=== PATIENT | female | born 1955 | race American Indian/Alaskan Native ===

== ENCOUNTER 2016-11-25 06:32 | Inpatient (IN) | payer OTHER ==
[2016-11-16 10:14] VITALS: BMI 26.7
[2016-11-25] MEDS ORDERED: Bupivacaine HCl 0.25% PF (10 ml) Inj ONE (07:18)
[2016-11-25] MEDS ORDERED: Propofol 10 mg/ml Inj (20 ML) ONE (07:21)
[2016-11-25] MEDS ORDERED: Midazolam 2 MG/2 ML VIAL ONE (07:21)
--- NOTE | 2016-11-25 07:23 | CP.PCM.HP ---
History of Present Illness - History of Present Illness History of Present Illness: 61F with left shoulder DJD failed conservative mgmt and elected for total shoulder replacement. Denies history of bleeding disorder, denies hx DVT. PMH: GERD, HTN PSH: Left TKR, B THR Present on Admission - Present on Admission Any Indicators Present on Admission: No Past Patient History - Past Medical History & Family History Past Medical History?: Yes - Past Social History Smoking Status: Former Smoker - CARDIAC Hx Cardiac Disorders: Yes (HX. RHEUMATIC FEVER) Hx Hypercholesterolemia: Yes Hx Hypertension: Yes - PULMONARY Hx Respiratory Disorders: Yes Hx Bronchitis: Yes (RECENTLY) - NEUROLOGICAL Hx Neurological Disorder: No - HEENT Hx HEENT Problems: Yes (GLASSES) - RENAL Hx Chronic Kidney Disease: No - ENDOCRINE/METABOLIC Hx Endocrine Disorders: No - HEMATOLOGICAL/ONCOLOGICAL Hx Blood Disorders: Yes Hx Blood Transfusions: Yes (AUTOLOGOUS) Hx Blood Transfusion Reaction: No - INTEGUMENTARY Hx Dermatological Problems: No - MUSCULOSKELETAL/RHEUMATOLOGICAL Hx Musculoskeletal Disorders: Yes (LEFT SHOUDER PAIN) Hx Degenerative Joint Disease: Yes Hx Osteoarthritis: Yes - GASTROINTESTINAL Hx Gastrointestinal Disorders: Yes Hx Gastroesophageal Reflux: Yes - GENITOURINARY/GYNECOLOGICAL Hx Genitourinary Disorders: No - PSYCHIATRIC Hx Psychophysiologic Disorder: No - SURGICAL HISTORY Hx Surgeries: Yes Hx Joint Replacement: Yes (BILATERAL HIP/LEFT TOTAL KNEE) - ANESTHESIA Hx Anesthesia: Yes Hx Anesthesia Reactions: No Hx Malignant Hyperthermia: No Has any member of the family had a problem w/ anesthesia?: (UNKNOWN) Meds Allergies/Adverse Reactions: Allergies Allergy/AdvReac Type Severity Reaction Status Date / Time Penicillins Allergy Severe ANAPHYLAXIS Verified 11/16/16 10:13 Physical Exam - Constitutional Appears: Well, No Acute Distress Additional comments: Medical clearance/H&P on chart - Extremities Exam Additional comments: +radial pulse sensation intact +ROM fingers abd/add/flex/ext, wrist flex/ext - Neurological Exam Neurological exam: Alert, Oriented x3 - Psychiatric Exam Psychiatric exam: Normal Affect, Normal Mood - Skin Skin Exam: Dry, Intact, Normal Color, Warm Results - Labs Labs: labs on chart, reviewed Assessment & Plan (1) Degenerative joint disease, shoulder, left Status: Acute (2) HTN (hypertension) Status: Acute (3) GERD (gastroesophageal reflux disease) Status: Acute Decision To Admit - Pt Status Changed To: Hospital Disposition Of: Inpatient - Admit Certification Admit to Inpatient:: After my assessment, the patient will require hospitalization for at least two midnights. This is because of the severity of symptoms shown, intensity of services needed, and/or the medical risk in this patient being treated as an outpatient. - InPatient: Physician Admission Certification:: After my assessment, the patient will require hospitalization for at least two midnights. This is because of the severity of symptoms shown, intensity of services needed, and/or the medical risk in this patient being treated as an outpatient. - . Bed Request Type: Regular
[2016-11-25] MEDS ORDERED: EPINEPHrine 1:1000 Nasal Sol(30mL) ONE (07:26)
[2016-11-25] MEDS ORDERED: Lactated Ringer's 1,000 ML IV ONE ×3 (08:10→10:50)
[2016-11-25] MEDS ORDERED: Bacitracin 150,000 UNIT in Sodium Chloride 0.9% Irrig 3,000 ML IR SCH (08:30)
[2016-11-25] MEDS ORDERED: White Petrolatum/Mineral Oil Ophth Oint(3.5 gm) ONE (08:37)
[2016-11-25] MEDS ORDERED: Rocuronium 10 mg/ml (5 ml) ONE (08:37)
[2016-11-25] MEDS: EPINEPHrine 1 mg/ml (1:1000) Inj ONE ×2 (08:41→08:47)
[2016-11-25] MEDS ORDERED: Lactated Ringer's 1,000 ML IV SCH (10:45)
[2016-11-25] MEDS ORDERED: Neostigmine Methylsulfate 3mg/3ml Syringe IV ONE (11:14)
[2016-11-25] MEDS ORDERED: HYDROmorphone 0.5 mg/0.5 ml ISec IVP PRN (11:40)
[2016-11-25] MEDS ORDERED: Sodium Chloride 0.9% 1,000 ML IV SCH (11:45)
--- NOTE | 2016-11-25 11:47 | PCM.SURG1 ---
Surgeon's Initial Post Op Note - Surgeon's Notes Surgeon: Remigio Parra MD Radio Operator: Bari Saldaña PA-C, CRNA Type of Anesthesia: General Endo Anesthesia Administered By: Dr. Wright Pre-Operative Diagnosis: Left shoulder degenerative joint disease Operative Findings: Medacta implants Post-Operative Diagnosis: same Operation Performed: 1. Left total shoulder replacement. 2. open rotator cuff repair. 3. open biceps tenodesis. 4. arthrotomy, excision of labrum and osteophytes Specimen/Specimens Removed: bone, synovium Estimated Blood Loss: EBL {In ML}: 100 Blood Products Given: N/A Drains Used: No Drains Post-Op Condition: Fair Date of Surgery/Procedure: 11/25/16 Time of Surgery/Procedure: 11:47
[2016-11-25] MEDS: HYDROmorphone 0.5 mg/0.5 ml ISec IVP PRN ×6 (12:03→12:40)
--- NOTE | 2016-11-25 13:03 | RAD ---
PROCEDURE: Radiographs of the Left Shoulder HISTORY: pt in pacu, s/p total shoulder COMPARISON: No prior. FINDINGS: BONES: Total left shoulder arthroplasty -prostatic components appear well-seated within glenoid and proximal humerus JOINTS: Normal. Glenohumeral and acromioclavicular joints preserved. No osteoarthritis. SOFT TISSUES: Skin dhiraj in place OTHER FINDINGS: None. IMPRESSION: Postop changes
[2016-11-25] MEDS ORDERED: HYDROmorphone 1 mg/ml ISec IVP PRN (14:00)
--- NOTE | 2016-11-25 14:22 | PCM.ANESB1 ---
Interscalene Block - Brachial Plexus Procedure Performed: Interscalene Block of Brachial Plexus Left - Procedure Interscalene Block of Brachial Plexus: This procedure was explained to the patient that it is for post-operative pain management. Consent was obtained after a thorough discussion with the patient regarding the benefits and possible complications of local anesthetic block of the Brachial Plexus at the Interscalene area. The patient was brought to the Operating Room and standard monitors were applied. Time out was held with the circulating nurse to confirm the correct surgery and appropriate block. After applying Oxygen by nasal cannula and administering IV Sedation, the patient's head was gently rotated away from the LEFT_operative shoulder and the anterior scalene groove was carefully palpated. The ultrasound transducer was then applied to the skin in the transverse plane and the brachial plexus was visualized lateral to the carotid artery and in between the anterior and middle scalene muscles. After identification,the anterior lateral portion of the neck was prepped with Betadine solution three times and Lidocaine 1% was injected subcutaneously for topical analgesia. At this point, a # 22 gauge Stimuplex 2 inches insulated needle was inserted into the interscalene groove and directed in a caudal and midline direction. The needle was inserted lateral to the ultrasound transducer in-plane towards the brachial plexus in a [id number] direction. Needle advancement was performed carefully under direct ultrasound visualization. After repeated negative aspiration,_5__cc of____0.25%_bupivicaine____were injected and this was followed with __10___cc of _0.25%_bupivicaine_. Under ultrasound guidance the local anesthetics were observed surrounding the roots of the brachial plexus. The needle was removed intact and sterile dressing was applied. The patient had stable vital signs, was conscious and in no apparent distress. The patient tolerated the interscalene block of the bracheal plexus well with stable vital signs, no complaints or paresthesias.
[2016-11-25] MEDS ORDERED: Sodium Chloride 0.9% 1,000 ML IV ONE (15:00)
[2016-11-25] MEDS: Clindamycin 600mg/50ml D5W 600 MG/50 ML VIAL IVPB SCH ×2 (16:41→19:37)
[2016-11-25] MEDS: Saccharomyces Boulardi 250 mg Cap PO SCH (18:31)
--- NOTE | 2016-11-25 20:50 | CP.PCM.HP ---
<Claire Ramana - Last Filed: 11/25/16 20:52> History of Present Illness - History of Present Illness History of Present Illness: Medicine Consult Note CC: Medical Management HPI: PMHx: PSHx: Meds: All: SHx: FHx: PMD: Past Patient History - Past Medical History & Family History Past Medical History?: Yes - Past Social History Smoking Status: Former Smoker - CARDIAC Hx Cardiac Disorders: Yes (HX. RHEUMATIC FEVER) Hx Hypercholesterolemia: Yes Hx Hypertension: Yes - PULMONARY Hx Respiratory Disorders: Yes Hx Bronchitis: Yes (RECENTLY) - NEUROLOGICAL Hx Neurological Disorder: No - HEENT Hx HEENT Problems: Yes (GLASSES) - RENAL Hx Chronic Kidney Disease: No - ENDOCRINE/METABOLIC Hx Endocrine Disorders: No - HEMATOLOGICAL/ONCOLOGICAL Hx Blood Disorders: Yes Hx Blood Transfusions: Yes (AUTOLOGOUS) Hx Blood Transfusion Reaction: No - INTEGUMENTARY Hx Dermatological Problems: No - MUSCULOSKELETAL/RHEUMATOLOGICAL Hx Musculoskeletal Disorders: Yes (LEFT SHOUDER PAIN) Hx Degenerative Joint Disease: Yes Hx Osteoarthritis: Yes - GASTROINTESTINAL Hx Gastrointestinal Disorders: Yes Hx Gastroesophageal Reflux: Yes - GENITOURINARY/GYNECOLOGICAL Hx Genitourinary Disorders: No - PSYCHIATRIC Hx Psychophysiologic Disorder: No - SURGICAL HISTORY Hx Surgeries: Yes Hx Joint Replacement: Yes (BILATERAL HIP/LEFT TOTAL KNEE) - ANESTHESIA Hx Anesthesia: Yes Hx Anesthesia Reactions: No Hx Malignant Hyperthermia: No Has any member of the family had a problem w/ anesthesia?: (UNKNOWN) Meds Allergies/Adverse Reactions: Allergies Allergy/AdvReac Type Severity Reaction Status Date / Time Penicillins Allergy Severe ANAPHYLAXIS Verified 11/16/16 10:13 Results - Vital Signs Recent Vital Signs: Last Vital Signs Temp 98.3 F 11/25/16 20:15 Pulse 63 11/25/16 20:15 Resp 18 11/25/16 20:15 BP 131/76 11/25/16 20:15 Pulse Ox 99 11/25/16 20:15 - Labs Labs: Laboratory Results - last 24 hr 11/25/16 07:40 Blood Type O POSITIVE Antibody Screen Negative <Glenn Arias - Last Filed: 11/25/16 21:59> Results - Vital Signs Recent Vital Signs: Last Vital Signs Temp 98.3 F 11/25/16 20:15 Pulse 63 11/25/16 20:15 Resp 18 07/06/17 20:15 BP 131/76 11/25/16 20:15 Pulse Ox 99 11/25/16 20:15 - Labs Labs: Laboratory Results - last 24 hr 11/25/16 07:40 Blood Type O POSITIVE Antibody Screen Negative
[2016-11-25] MEDS ORDERED: POLYETHYLENE GLYCOL 3350 17 GM/Dose PACKET PO ONE (22:03)
--- NOTE | 2016-11-25 22:10 | CP.PCM.HP ---
<Glenn Arias - Last Filed: 11/25/16 22:01> History of Present Illness - History of Present Illness History of Present Illness: CC: Post-op medical management HPI: Mrs Kohler is a 61 yo F with a PMHx significant for degenerative join disease and osteoarthritis who presents to our service for post-op medical management following an elective left total shoulder replacement today. Patient states that she has had worsening left should pain over the past few months. She also endorses a prior history of multiple orthopedic procedures including left and right total hip replacements and left total knee replacement. The surgery today was uneventful. At this time the patient is not in acute distress and she denies any other complaints. PMD: Dr Gutierrez PMHx: degenerative joint disease osteoarthritis HTN HLD GERD Rhematic fever Lumbar radiculopathy Corcoran's neuroma (L) PSHx: Left and Right total hip replacement Left total knee replacement Medications: ASA 81mg qd HCTZ/Losartan 25-100mg po qd Lipitor 40mg po qd Protonix 40mg po prn Allergies: Penicillin -> syncope SocialHx: smoking hx of 0.5ppd for 20 years; etoh 1-2x/wk; currently unemployed ; single FamHx: Mother: CAD, HTN, NV, DM2; FAther: Prostate CA; Brother: NV, HTN, DM2 Present on Admission - Present on Admission Any Indicators Present on Admission: No Review of Systems - Constitutional Constitutional: absent: Chills, Fatigue, Fever - EENT Eyes: absent: Change in Vision Nose/Mouth/Throat: absent: Nasal Congestion, Nasal Discharge - Cardiovascular Cardiovascular: absent: Chest Pain, Diaphoresis, Dyspnea - Respiratory Respiratory: absent: Cough, Dyspnea, Wheezing - Gastrointestinal Gastrointestinal: absent: Abdominal Pain, Constipation, Diarrhea - Genitourinary Genitourinary: absent: Dysuria - Musculoskeletal Musculoskeletal: Joint Swelling, Limited Range of Motion - Integumentary Integumentary: absent: Change in Pigmentation - Neurological Neurological: absent: Behavioral Changes, Dizziness - Psychiatric Psychiatric: absent: Behavioral Changes Past Patient History - Past Medical History & Family History Past Medical History?: Yes - Past Social History Smoking Status: Former Smoker - CARDIAC Hx Cardiac Disorders: Yes (HX. RHEUMATIC FEVER) Hx Hypercholesterolemia: Yes Hx Hypertension: Yes - PULMONARY Hx Respiratory Disorders: Yes Hx Bronchitis: Yes (RECENTLY) - NEUROLOGICAL Hx Neurological Disorder: No - HEENT Hx HEENT Problems: Yes (GLASSES) - RENAL Hx Chronic Kidney Disease: No - ENDOCRINE/METABOLIC Hx Endocrine Disorders: No - HEMATOLOGICAL/ONCOLOGICAL Hx Blood Disorders: Yes Hx Blood Transfusions: Yes (AUTOLOGOUS) Hx Blood Transfusion Reaction: No - INTEGUMENTARY Hx Dermatological Problems: No - MUSCULOSKELETAL/RHEUMATOLOGICAL Hx Musculoskeletal Disorders: Yes (LEFT SHOUDER PAIN) Hx Degenerative Joint Disease: Yes Hx Osteoarthritis: Yes - GASTROINTESTINAL Hx Gastrointestinal Disorders: Yes Hx Gastroesophageal Reflux: Yes - GENITOURINARY/GYNECOLOGICAL Hx Genitourinary Disorders: No - PSYCHIATRIC Hx Psychophysiologic Disorder: No - SURGICAL HISTORY Hx Surgeries: Yes Hx Joint Replacement: Yes (BILATERAL HIP/LEFT TOTAL KNEE) - ANESTHESIA Hx Anesthesia: Yes Hx Anesthesia Reactions: No Hx Malignant Hyperthermia: No Has any member of the family had a problem w/ anesthesia?: (UNKNOWN) Meds Home Medications: Home Medication List Medication Instructions Recorded Confirmed Type Ondansetron HCl [Zofran] 4 mg PO Q6H PRN #20 tablet 11/26/16 Rx RX: Aspirin [Ecotrin] 81 mg PO Q12H 11/26/16 Rx RX: Docusate [Colace] 100 mg PO TID cap 11/26/16 Rx RX: oxyCODONE/Acetaminophen 2 tab PO Q4H PRN #40 tab 11/26/16 Rx [Percocet 5/325 mg Tab] Allergies/Adverse Reactions: Allergies Allergy/AdvReac Type Severity Reaction Status Date / Time Penicillins Allergy Severe ANAPHYLAXIS Verified 11/16/16 10:13 Physical Exam - Constitutional Appears: Well, Non-toxic, No Acute Distress - Head Exam Head Exam: ATRAUMATIC, NORMAL INSPECTION, NORMOCEPHALIC - Eye Exam Eye Exam: EOMI, Normal appearance, PERRL Pupil Exam: NORMAL ACCOMODATION, PERRL - ENT Exam ENT Exam: Mucous Membranes Moist, Normal Exam - Neck Exam Neck exam: Positive for: Normal Inspection - Respiratory Exam Respiratory Exam: Clear to Auscultation Bilateral, NORMAL BREATHING PATTERN - Cardiovascular Exam Cardiovascular Exam: REGULAR RHYTHM - GI/Abdominal Exam GI & Abdominal Exam: Normal Bowel Sounds, Soft. absent: Tenderness - Rectal Exam Rectal Exam: Deferred - Extremities Exam Additional comments: radial and ulnar pulses 2+ left shoulder wrapped in ice bag - Neurological Exam Neurological exam: Alert, Oriented x3 - Psychiatric Exam Psychiatric exam: Normal Affect, Normal Mood - Skin Skin Exam: Dry, Intact, Normal Color, Warm Results - Vital Signs Recent Vital Signs: Last Vital Signs Temp 98.3 F 11/25/16 20:15 Pulse 63 11/25/16 20:15 Resp 18 11/25/16 20:15 BP 131/76 11/25/16 20:15 Pulse Ox 99 11/25/16 20:15 - Labs Labs: Laboratory Results - last 24 hr 11/25/16 07:40 Blood Type O POSITIVE Antibody Screen Negative Assessment & Plan (1) Degenerative joint disease, shoulder, left Assessment and Plan: post op total left shoulder replacement apply ice to left shoulder maintain shoulder immobilized assess neurovascular status q8 pain assess/reasses q8 dilaudid 1mg IV q4 prn for pain percocet 5/325 mg 2 tab q4 po prn for pain Status: Acute (2) HTN (hypertension) Assessment and Plan: con't home meds: HCTZ 25mg po daily Losartan 100mg po daily Status: Acute (3) Prophylactic measure Assessment and Plan: contraindications for VTE prophylaxsis incentive spirometry OT/PT treat and eval protonix 40mg po daily colace 100mg TID po Florastar 250mg po bid SCDs Status: Acute <Mary Gonzalez V - Last Filed: 11/26/16 23:13> Results - Vital Signs Recent Vital Signs: Last Vital Signs Temp 98.7 F 11/26/16 17:47 Pulse 67 11/26/16 17:47 Resp 20 11/26/16 17:47 BP 178/80 H 11/26/16 17:47 Pulse Ox 96 11/26/16 17:47 - Labs Result Diagrams: 11/26/16 08:13 11/26/16 08:13 Labs: Laboratory Results - last 24 hr 11/26/16 11/26/16 08:13 08:13 WBC 10.0 RBC 3.82 Hgb 10.4 L Hct 32.0 L MCV 83.6 MCH 27.3 MCHC 32.7 L RDW 13.7 Plt Count 166 MPV 9.4 Sodium 138 Potassium 3.7 Chloride 102 Carbon Dioxide 27 Anion Gap 13 BUN 12 Creatinine 0.6 L Est GFR ( Amer) > 60 Est GFR (Non-Af Amer) > 60 Random Glucose 100 Calcium 8.3 L Attending/Attestation - Attestation I have personally seen and examined this patient.: Yes I have fully participated in the care of the patient.: Yes I have reviewed all pertinent clinical information: Yes Notes (Text): This is late computer entry for 11/25/16. Patient seen in PACU yesterday afternoon. Medicine is consulted for post-operative medical management per orthopedic. This document is MEDICINE CONSULT note not HISTORY and PHYSICAL. Patient seen, examined and case discussed with day-time human resources intern. Patient has quite notable history of degenerative joint disease, osteoarthritis requiring multiple joint replacement/surgeries. Patient is post-operative day 0 of total shoulder replacement. Patient's sensation over affected shoulder and pulses intact. Patient noted to take her anti-hypertensive prior to OR today, osteoarthritis and prior history of rheumatic fever. Assessment/Plan (1) Degenerative joint disease, shoulder, left Assessment and Plan: Orthopedics (Brianna Romano) is primary for this patient's case. Patient's surgical mangement including intraopertive and post-operative per orthopedicis. Per orthopedic team, to determine anti-coagulation--Per discussion with PACU nursing staff, ortho recommended for Aspirin 81mg PO 12 hours. Per Orthopedics: apply ice to left shoulder maintain shoulder immobilized assess neurovascular status q8 pain assess/reasses q8 dilaudid 1mg IV q4 prn for pain percocet 5/325 mg 2 tab q4 po prn for pain Status: Acute (2) HTN (hypertension) Assessment and Plan: con't home meds: HCTZ 25mg po daily Losartan 100mg po daily To resume tomorrow. Status: Chronic (3) Prophylactic measure Assessment and Plan: Postoperative Day0. Orthopedic team to determine which anticogolation can and when to be used. VTE prophylaxsis incentive spirometry OT/PT treat and eval protonix 40mg po daily colace 100mg TID po Florastar 250mg po bid while patient is on Prophyactic IV abc SCDs Status: Acute
[2016-11-26 00:46] VITALS: RESP 20
[2016-11-26] MEDS: Oxycodone/Acetaminophen 5/325 mg Tab PO PRN ×3 (08:06→19:34)
[2016-11-26 08:19] LABS: HEMOGLOBIN 10.4 g/dL (11.0-16.0); MEAN CELL VOLUME 83.6 fL (81.0-99.0); MEAN CORPUSCULAR HEMOGLOBIN 27.3 pg (27.0-31.0); MEAN CORPUSCULAR HGB CONC 32.7 g/dL (33.0-37.0); MEAN PLATELET VOLUME 9.4 fL (7.2-11.7); RBC 3.82 Mil/uL (3.80-5.20); RED CELL DISTRIBUTION WIDTH 13.7 % (11.5-14.5)
[2016-11-26 08:48] LABS: BLOOD UREA NITROGEN 12 mg/dL (7-17); GFR AFRICAN-AMERICAN > 60; GFR NON-AFRICAN AMERICAN > 60
[2016-11-26 08:49] LABS: CALCIUM 8.3 mg/dl (8.6-10.4)
[2016-11-26] MEDS ORDERED: Bisacodyl 5mg EC Tab PO ONE (09:41)
--- NOTE | 2016-11-26 09:41 | CP.PCM.PN ---
Subjective - Date & Time of Evaluation Date of Evaluation: 11/26/16 Time of Evaluation: 09:37 - Subjective Subjective: Patient states that pain in shoulder is mild. She says it is controlled with pain medication. She says the sensation is coming backt to her hand, but she still has a little tingling in her thumb. She denies CP/SOB/dizziness. Complains of constipation x 3 days Patient states she has pets and insists on going home. Patient lives alone. Objective - Vital Signs/Intake and Output Vital Signs (last 24 hours): Temp Pulse Resp BP Pulse Ox 99.0 F 62 20 145/73 100 11/26/16 08:57 11/26/16 08:57 11/26/16 08:57 11/26/16 08:57 11/26/16 08:57 Intake and Output: 11/26/16 11/26/16 06:59 18:59 Intake Total 580 Output Total 940 Balance -360 - Medications Medications: Current Medications Aspirin (Ecotrin) 81 mg PO Q12H EMMETT Docusate Sodium (Colace) 100 mg PO TID EMMETT Hydrochlorothiazide (Hydrodiuril) 25 mg PO DAILY EMMETT Hydromorphone HCl (Dilaudid) 1 mg IVP Q4H PRN PRN Reason: Pain, severe (8-10) Lactated Ringer's (Lactated Ringer's) 1,000 mls @ 100 mls/hr IV .Q10H EMMETT Sodium Chloride (Sodium Chloride 0.9%) 1,000 mls @ 80 mls/hr IV .[id number] [facility] Last Admin: 11/25/16 21:20 Dose: 80 mls/hr Losartan Potassium (Cozaar) 100 mg PO DAILY EMMETT Ondansetron HCl (Zofran Inj) 4 mg IVP ONCE PRN PRN Reason: Nausea/Vomiting Last Admin: 11/25/16 19:37 Dose: 4 mg Oxycodone/Acetaminophen (Percocet 5/325 Mg Tab) 2 tab PO Q4H PRN PRN Reason: Pain, moderate (4-7) Stop: 11/28/16 12:01 Last Admin: 11/26/16 08:06 Dose: 2 tab Pantoprazole Sodium (Protonix Ec Tab) 40 mg PO DAILY EMMETT Rosuvastatin Calcium (Crestor) 20 mg PO HS EMMETT Saccharomyces Boulardii (Florastor) 250 mg PO BID EMMETT Last Admin: 11/25/16 18:31 Dose: 250 mg - Labs Labs: 11/26/16 08:13 11/26/16 08:13 - Extremities Exam Additional comments: Left shoulder: dressing intact. +ROM fingers/thumb flex/ext/add/abd, wrist flex/ ext, sensation intact except decreased sensation to volar aspect of thumb. + radial pulse, shoulder immobilizer adjusted. Assessment and Plan (1) Degenerative joint disease, shoulder, left Assessment & Plan: POD#1 s/p left total shoulder replacement -post operative xrays show well positioned prosthesis -labs reviewed -PT/OT -d/c planningn to home with services -will reevaluate pain in afternoon and plan discharge home if controlled (after peripheral nerve block wears off) -D/w Dr. Parra, agrees withche terry Status: Acute (2) HTN (hypertension) Assessment & Plan: cont home meds Status: Chronic (3) GERD (gastroesophageal reflux disease) Assessment & Plan: cont protonix Status: Chronic
[2016-11-26] MEDS ORDERED: Pantoprazole 40 mg EC Tab PO SCH (10:00)
[2016-11-26] MEDS: Saccharomyces Boulardi 250 mg Cap PO SCH (10:11)
--- NOTE | 2016-11-26 13:11 | CP.PCM.DIS ---
Provider - Provider Date of Admission: 11/25/16 06:32 Attending physician: Dipak Parra III, MD Consults: hospitalist Time Spent in preparation of Discharge (in minutes): 5 Diagnosis - Discharge Diagnosis (1) Degenerative joint disease, shoulder, left Status: Acute (2) HTN (hypertension) Status: Chronic (3) GERD (gastroesophageal reflux disease) Status: Chronic Hospital Course - Lab Results Lab Results: Most Recent Lab Values WBC 10.0 K/uL (4.8-10.8) 11/26/16 08:13 RBC 3.82 Mil/uL (3.80-5.20) 11/26/16 08:13 Hgb 10.4 g/dL (11.0-16.0) L 11/26/16 08:13 Hct 32.0 % (34.0-47.0) L 11/26/16 08:13 MCV 83.6 fL (81.0-99.0) 11/26/16 08:13 MCH 27.3 pg (27.0-31.0) 11/26/16 08:13 MCHC 32.7 g/dL (33.0-37.0) L 11/26/16 08:13 RDW 13.7 % (11.5-14.5) 11/26/16 08:13 Plt Count 166 K/uL (130-400) 11/26/16 08:13 MPV 9.4 fL (7.2-11.7) 11/26/16 08:13 Sodium 138 mmol/L (132-148) 11/26/16 08:13 Potassium 3.7 mmol/L (3.6-5.2) 11/26/16 08:13 Chloride 102 mmol/L (98-107) 11/26/16 08:13 Carbon Dioxide 27 mmol/L (22-30) 11/26/16 08:13 Anion Gap 13 (10-20) 11/26/16 08:13 BUN 12 mg/dL (7-17) 11/26/16 08:13 Creatinine 0.6 MG/DL (0.7-1.2) L 11/26/16 08:13 Est GFR ( Amer) > 60 11/26/16 08:13 Est GFR (Non-Af Amer) > 60 11/26/16 08:13 Random Glucose 100 mg/dL (65-105) 11/26/16 08:13 Calcium 8.3 mg/dl (8.6-10.4) L 11/26/16 08:13 Blood Type O POSITIVE 11/25/16 07:40 Antibody Screen Negative 11/25/16 07:40 - Hospital Course Hospital Course: 61F with left shoulder degenerative joint disease failed conservative mgmt and elected for total shoulder replacement. HTN and GERD controlled throughout admission. Patient discharged home with instructions to f/u in office on 11/30, call for appointment, maintain dressing and shoulder immobilizer. Discharge Exam - Head Exam Head Exam: ATRAUMATIC, NORMAL INSPECTION, NORMOCEPHALIC Discharge Plan - Discharge Medications Prescriptions: oxyCODONE/Acetaminophen [Percocet 5/325 mg Tab] 2 tab PO Q4H PRN #40 tab PRN Reason: Pain, Moderate (4-7) - Follow Up Plan Condition: GOOD Disposition: HOME/ ROUTINE Referrals: Dipak Parra III, MD [Staff Provider] - 11/30/16 (keep dressing and shoulder immobilizer intact f/u Thursday 11/30, call for appointment time )
[2016-11-26] MEDS ORDERED: POLYETHYLENE GLYCOL 3350 17 GM/Dose PACKET PO ONE (15:54)
[2016-11-26 17:47] VITALS: BP 178/80; PULSE 67; TEMP 98.7; O2SAT 96
--- NOTE | 2016-11-26 23:16 | CP.PCM.PN ---
Subjective - Date & Time of Evaluation Date of Evaluation: 11/26/16 Time of Evaluation: 15:35 - Subjective Subjective: Medical attending note/Medicine Consult Patient seen and examined. Patient feels nauesous. Patient recommended for Zofran PRN nausea since patient has pain to be uncontrolled. Patient request home extension agent, discussed with case management who reports patient is awaiting eval when she goes home likely tomorrow. Patient reports she has not had flatus nor fever Objective - Vital Signs/Intake and Output Vital Signs (last 24 hours): Temp Pulse Resp BP Pulse Ox 98.7 F 67 20 178/80 H 96 11/26/16 17:47 11/26/16 17:47 11/26/16 17:47 11/26/16 17:47 11/26/16 17:47 - Labs Labs: 11/26/16 08:13 11/26/16 08:13 - Constitutional Appears: Non-toxic, No Acute Distress - Head Exam Head Exam: NORMAL INSPECTION - Eye Exam Eye Exam: EOMI Pupil Exam: PERRL - ENT Exam ENT Exam: Mucous Membranes Dry - Neck Exam Neck Exam: Normal Inspection - Respiratory Exam Respiratory Exam: Clear to Ausculation Bilateral, NORMAL BREATHING PATTERN - Cardiovascular Exam Cardiovascular Exam: REGULAR RHYTHM, +S1, +S2 - GI/Abdominal Exam GI & Abdominal Exam: Soft, Normal Bowel Sounds - Extremities Exam Additional comments: LEft shoulder in orthopedic device likely sling; pulses are intact over left side. Covered in gel Assessment and Plan - Assessment and Plan (Free Text) Assessment: (1) Degenerative joint disease, shoulder, left Assessment and Plan: Orthopedics (Brianna Romano) is primary for this patient's case. Patient's surgical mangement including intraopertive and post-operative per orthopedicis. Per orthopedic team, to determine anti-coagulation--Per discussion with PACU nursing staff, ortho recommended for Aspirin 81mg PO 12 hours. Per Orthopedics: apply ice to left shoulder maintain shoulder immobilized assess neurovascular status q8 pain assess/reasses q8 dilaudid 1mg IV q4 prn for pain percocet 5/325 mg 2 tab q4 po prn for pain Status: Acute (2) HTN (hypertension) Assessment and Plan: con't home meds: HCTZ 25mg po daily Losartan 100mg po daily To resume tomorrow. Status: Chronic (3) Constipation Recommended for Miralax PO C1. (4) Prophylactic measure Assessment and Plan: Postoperative Day0. Orthopedic team to determine which anticogolation can and when to be used. VTE prophylaxsis incentive spirometry OT/PT treat and eval protonix 40mg po daily colace 100mg TID po Florastar 250mg po bid while patient is on Prophyactic IV abc SCDs Discharge planning per orthopedic. Status: Acut
--- NOTE | 2016-12-09 17:03 | PCM.OP ---
Operative Report - Operative Report Date of Surgery/Procedure: 11/29/16 Time of Surgery/Procedure: 11:50 Surgeon: Aida Sales Assistant: 1st assist Gui aFrmer/2nd assist Vidhi Abrams Anesthesia/Sedation: GETA-. Dr Albert Edge Pre-Operative Diagnosis: Primary O/A L shoulder Post-Operative Diagnosis: as above Indication for Surgery: severe pain and restricted ROM L shoulder Operative Findings: severe O/A L shoulder. rotator cuff tear. biceps tendon attenuatiotear glenoid labrum/osteo[phytes. Operative procedure: Operative indication- the patient is a 61-year-old woman well known to my practice who presents with severe pain and restricted range of motion of the left shoulder. The patient has been refractory to conservative management consisting of intra- articular injection, activity modification and therapy. Pros cause risks and benefits of shoulder replacement arthroplasty were discussed. The possibility of mechanical failure infection thromboembolic disease;further surgery were discussed. The patient can only stand the discomfort and wishes replacement arthroplasty. The patient has obtained other opinions and is aware of alternative treatments. She wishes me to accomplish the replacement arthroplasty. After obtaining informed consent in the above fashion, after having identified side and site and procedure and the critical pause/timeout after the satisfactory induction of the anesthetic patient identified as Meg Kohler is placed in a modified trivedi chair position. The left upper extremity is prepped and free draped. A fairly sterilely prepped and draped size 7 procedure and the critical pause/timeout incision as described from the distal third of the clavicle to the deltoid insertion was accomplished. Skin incision was carried down through the skin and subcutaneous tissue. Hemostasis controlled with electrocautery. The deltopectoral interval was identified. A 5 trial shoulder retractor was placed after the clavipectoral fascia is divided. Retractors placed reflecting the strap muscles and the deltoid. With external rotation of the shoulder and incision as described in the rotator cuff and centimeter medial to the lesser tuberosity. The biceps tendon is found to be attenuated and was released from the supraglenoid tubercle. It should be noted that the deltopectoral interval had been developed to allow exposure of the clavipectoral fascia. The rotator cuff was tagged as was the biceps tendon. With further external rotation of the shoulder shoulder was dislocated. The subscapular vessels were controlled. Great care was taken to avoid injury to the axillary nerve. Preoperative planning was supplemented by intraoperative findings and intramedullary setting. Humeral osteotomy was accomplished. Humeral osteotomy having been accomplished the plate is applied to the cut surface of the humerus to that further damage. Retractors introduced and the glenoid was exposed. Retractors were placed superiorly and a glenoid retractor was placed in the anterior aspect of the glenoid; this having been accomplished arthrotomy of the glenohumeral joint is accomplished in the labrum is excised. There are found to be exuberant osteophytes posteriorly. The guidewire is introduced and the epicenter of the glenoid. Reaming was accomplished the smaller sized glenoid plate is employed having been accomplished with the half reamers the reamer was placed through the central aspect of the glenoid extremity having been accomplished the glenoid was impacted and the polyethylene was impacted the position was felt to be acceptable should be noted that the glenoid is stabilized with 2 screws one superior one inferior. The trial shoulder was assembled [facility]. Several planes; accomplished the wound was thoroughly irrigated and then the appropriate size # 60 femoral components employed 43 mm head and 2+2 mm [facility] at this point in time the prosthesis having been impacted the position was felt to be excellent the epicenter of the glenoid is currently epicenter of the prosthetic humeral head reduction was accomplished and found to be excellent stability was achieved in all planes. The wound was thoroughly irrigated with normal approximate 5 of internal rotation and neutral flexion the rotator cuff was his repaired primarily with interrupted FiberWire. The rotator cuff repaired intra-articular biceps tenodesis accomplished. Intra-articular biceps tenodesis accomplished using the FiberWire and the rotator cuff was repaired to the biceps as it is tenodesed. The wound was thoroughly irrigated. The deltopectoral interval was closed with 0 Vicryl followed by dhiraj for skin. Loss approximately 25 mm. Postop x-rays in excellent position of the construct rubber Hernandez compression dressing and Aquacel dressing was applied as well as a shoulder immobilizer this is the end of the operative note patient Meg Kohler. Surgery 11/29/2016. end dictation Procedure/Operation Description: L Total shoulder Replacement. repair L rotator cuff. tenodesis long head biceps. arthromy excision labrum/debridemnt osteophytes Estimated Blood Loss: 100cc Blood Replaced: 0 Sponge/Instrument Count: correct Drains: 0 Complications: none Specimen: arthritic bone/cartilage Discharge & Condition: pt orthopeeically stable post procedure
== END 2016-11-26 20:00 | disposition home health service (06) | DRG 491 ==
LOC: C.9S 06:32 → C.6T 17:27
PROVIDERS: ADMIT Orthopaedic Surgery; ATTEND Orthopaedic Surgery
PROC: 0LQ20ZZ Repair Left Shoulder Tendon, Open Approach (ICD-10-PCS; 2016-11-25)
PROC: 0LS40ZZ Reposition Left Upper Arm Tendon, Open Approach (ICD-10-PCS; 2016-11-25)
PROC: 0XB30ZZ Excision of Left Shoulder Region, Open Approach (ICD-10-PCS; 2016-11-25)
PROC: 3E0T3CZ (ICD-10-PCS; 2016-11-25)
PROC: 0RRK0JZ Replacement of Left Shoulder Joint with Synthetic Substitute, Open Approach (ICD-10-PCS; principal; 2016-11-25 08:10)
DX: M19.012 Primary osteoarthritis, left shoulder (principal); M25.712 Osteophyte, left shoulder; M75.102 Unspecified rotator cuff tear or rupture of left shoulder, not specified as traumatic; G89.18 Other acute postprocedural pain; I10 Essential (primary) hypertension; K21.9 Gastro-esophageal reflux disease without esophagitis; M54.16 Radiculopathy, lumbar region; K59.00 Constipation, unspecified; E78.5 Hyperlipidemia, unspecified; Z96.643 Presence of artificial hip joint, bilateral; Z96.652 Presence of left artificial knee joint; Z88.0 Allergy status to penicillin; Z79.82 Long term (current) use of aspirin; Z87.891 Personal history of nicotine dependence